=== PATIENT | male | born 2000 | race American Indian/Alaskan Native ===

== ENCOUNTER 2021-08-13 11:37 | Emergency (ER) | payer SELFPAY ==
[2021-08-13 13:16] VITALS: BP 122/79
--- NOTE | 2021-08-13 13:58 | Emergency Department Report ---
ED General Adult HPI - General Chief complaint: Headache Stated complaint: GENERALIZED WEAKNESS Time Seen by Provider: 08/13/21 13:34 Source: patient, family Mode of arrival: Ambulatory Limitations: No Limitations - History of Present Illness Initial comments: 21-year-old -[place] male patient presents with complaints of sudden onset of body aches, chills, and sore throat starting last night. Patient states body aches and chills worsened today. He has not tried any OTC medications for his symptoms. Rates his throat pain is a 4/10 in severity. No past medical history per patient. He also denies any cough, congestion, chest pain, shortness of breath, rashes, or loss of taste or smell. He has not been vaccinated against COVID-19 and has not been tested for COVID-19. - Related Data Previous Rx's Medication Instructions Recorded Last Taken Type Ibuprofen [Motrin 800 MG tab] 800 mg PO Q8HR PRN #20 tablet 08/13/21 Unknown Rx predniSONE [Deltasone] 20 mg PO BID 3 Days #6 tab 08/13/21 Unknown Rx Allergies Allergy/AdvReac Type Severity Reaction Status Date / Time No Known Allergies Allergy Verified 08/13/21 13:13 ED Review of Systems ROS: Stated complaint: GENERALIZED WEAKNESS Other details as noted in HPI Constitutional: chills, malaise. denies: fever ENT: throat pain Respiratory: denies: cough, shortness of breath Cardiovascular: denies: chest pain Skin: denies: rash, change in color Neurological: denies: headache ED Past Medical Hx - Medications Home Medications: Home Medications Medication Instructions Recorded Confirmed Last Taken Type Ibuprofen [Motrin 800 MG tab] 800 mg PO Q8HR PRN #20 tablet 08/13/21 Unknown Rx predniSONE [Deltasone] 20 mg PO BID 3 Days #6 tab 08/13/21 Unknown Rx ED Physical Exam - General Limitations: No Limitations General appearance: alert, in no apparent distress - Head Head exam: Present: atraumatic - Eye Eye exam: Present: normal appearance. Absent: scleral icterus - ENT ENT exam: Present: normal exam, normal orophraynx - Expanded ENT Exam Expanded Throat exam: Positive: tonsillar erythema (mild bilateral). Negative: tonsillomegaly, tonsillar exudate, R peritonsillar mass, L peritonsillar mass, other (uvula is midline) - Neck Neck exam: Present: normal inspection - Respiratory Respiratory exam: Present: normal lung sounds bilaterally. Absent: respiratory distress - Cardiovascular Cardiovascular Exam: Present: regular rate, normal rhythm - Neurological Exam Neurological exam: Present: alert, oriented X3, normal gait - Psychiatric Psychiatric exam: Present: normal affect, normal mood - Skin Skin exam: Present: warm, dry, intact, normal color. Absent: rash ED Course Vital Signs 08/13/21 13:13 Temperature 99.2 F Pulse Rate 72 Respiratory 16 Rate Blood Pressure 122/79 [Left] O2 Sat by Pulse 94 Oximetry ED Medical Decision Making - Lab Data Lab Results 08/13/21 Range/Units Unknown Group A Strep Rapid Negative (Negative) - Medical Decision Making 21-year-old -[place] male patient presents with complaints of sudden onset of body aches, chills, and sore throat starting last night. Patient states body aches and chills worsened today. He has not tried any OTC medications for his symptoms. Rates his throat pain is a 4/10 in severity. No past medical history per patient. He also denies any cough, congestion, chest pain, shortness of breath, rashes, or loss of taste or smell. He has not been vaccinated against COVID-19 and has not been tested for COVID-19. Rapid strep is negative. Recommend outpatient testing for COVID-19 within the next 24 to 48 hours and self quarantine until further instructed. Meds given for symptomatic treatment for now. Discussed signs and symptoms that should p rompt immediate return to the ED with patient who verbalizes understanding Critical care attestation.: If time is entered above; I have spent that time in minutes in the direct care of this critically ill patient, excluding procedure time. ED Disposition Clinical Impression: Viral syndrome, Suspected 2019 novel coronavirus infection Disposition: HOME / SELF CARE / HOMELESS Is pt being admited?: No Condition: Stable Instructions: Viral Respiratory Infection, [id number], Prevent the Spread of COVID-19 if You Are Sick - [facility] Prescriptions: predniSONE [Deltasone] 20 mg PO BID 3 Days #6 tab Ibuprofen [Motrin 800 MG tab] 800 mg PO Q8HR PRN #20 tablet PRN Reason: pain Referrals: [facility] [Provider Group] - 3-5 Days Forms: Work/School Release Form(ED)
[2021-08-13] MEDS ORDERED: IBUPROFEN 800 MG TAB PO STA (14:35)
[2021-08-13] MEDS ORDERED: ACETAMINOPHEN 500 MG TAB PO STA (14:35)
== END 2021-08-13 15:37 | disposition home or self-care (01) ==
LOC: ED 11:37
DX: B34.9 Viral infection, unspecified (principal); Z20.822 Contact with and (suspected) exposure to COVID-19
CPT/HCPCS: 87116; 87430; 99283